=== PATIENT | male | born 1990 | race Caucasian/White ===

== ENCOUNTER 2018-10-30 19:03 | Inpatient (IN) | payer MEDICAID ==
[~2018-10-30] VITALS: Ht 170.2 cm; Wt 122.5 kg
[2018-10-30] MEDS ORDERED: QUET300T5 PO (19:39)
[2018-10-30] MEDS ORDERED: ARIP300S IM (19:39)
[2018-10-30 20:17] LABS: BASOPHILS % (AUTO) 0.6 % (0.0-2.0); EOSINOPHILS % (AUTO) 0.8 % (1.0-6.0); HEMATOCRIT 40.5 % (41-53); HEMOGLOBIN 13.2 g/dL (13.5-17.5); LYMPHOCYTES # (AUTO) 3.1 K/uL (1.0-4.8); LYMPHOCYTES % (AUTO) 25.7 % (22.0-44.0); MEAN CORPUSCULAR HEMOGLOBIN 28.6 pg (26.0-34.0); MEAN CORPUSCULAR HGB CONC 32.5 G/dL (31.0-37.0); MEAN CORPUSCULAR VOLUME 88 fL (80-100); MONOCYTES # (AUTO) 0.9 K/uL (0.1-1.0); MONOCYTES % (AUTO) 7.8 % (2.0-9.0); NEUTROPHILS # (AUTO) 7.8 K/uL (1.8-7.7); NEUTROPHILS % (AUTO) 65.1 % (40.0-70.0); PLATELET COUNT (AUTO) 226 K/uL (150-450); RED CELL DISTRIBUTION WIDTH 15.3 % (11.5-14.5)
[2018-10-30 20:23] LABS: ANION GAP 8 mmol/L (8-16); CALCIUM, TOTAL 8.7 mg/dL (8.8-10.5); CARBON DIOXIDE 28 mmol/L (22-29); CHLORIDE 105 mmol/L (98-107); CREATININE 0.93 mg/dL (0.60-1.30); GLOMERULAR FILTR. RATE CALC > 60 mL/min (>60); GLUCOSE,RANDOM 117 mg/dL (70-110); POTASSIUM 3.6 mmol/L (3.5-5.1); SODIUM SERUM 141 mmol/L (136-145); UREA NITROGEN, BLOOD 13 mg/dL (7-18)
[2018-10-30 20:30] LABS: ALANINE AMINOTRANSFERASE 24 U/L (12-78); ALBUMIN 2.9 g/dL (3.4-5.0); ALKALINE PHOSPHATASE 73 U/L (46-116); ASPARTATE AMINOTRANSFERASE 14 U/L (15-37); BILIRUBIN,TOTAL 0.1 mg/dL (0.1-1.0); TOTAL PROTEIN, SERUM 6.7 g/dL (6.4-8.2)
[2018-10-30] MEDS ORDERED: ZOLPIDEM TARTRATE 10 MG TABLET PO PRN (20:45)
[2018-10-30 21:40] VITALS: BP 129/60
[2018-10-30] MEDS ORDERED: IBUPROFEN 400 MG TABLET PO PRN (22:00)
[2018-10-30] MEDS ORDERED: PETROLATUM,WHITE 28 GM JELLY TP PRN (22:00)
[2018-10-30] MEDS ORDERED: MAG HYDROX/AL HYDROX/SIMETH ES 30 ML SUSPENSION UDCUP PO PRN (22:00)
[2018-10-30] MEDS ORDERED: CloNIDine HCL 0.1 MG TABLET PO PRN (22:00)
[2018-10-30] MEDS ORDERED: MAGNESIUM HYDROXIDE SUSPENSION 30 ML UDCUP PO PRN (22:00)
[2018-10-30] MEDS ORDERED: DOCUSATE SODIUM 100 MG CAPSULE PO PRN (22:00)
[2018-10-30] MEDS ORDERED: GuaiFENesin/D-METHORPHAN [SUGAR-FREE] 200-20MG/10 ML SYRUP UDCUP PO PRN (22:00)
[2018-10-30] MEDS ORDERED: LOPERAMIDE HCL 2 MG CAPSULE PO PRN (22:00)
[2018-10-30] MEDS ORDERED: ACETAMINOPHEN 325 MG TABLET PO PRN (22:00)
[2018-10-30] MEDS ORDERED: NICOTINE 14 MG/24 HOUR PATCH TD PRN (22:00)
[2018-10-30] MEDS ORDERED: ALBUTEROL SULFATE HFA 90 MCG/PUFF 8 GM INHALER IH PRN (22:00)
[2018-10-30] MEDS ORDERED: ONDANSETRON HCL 4 MG TABLET PO PRN (22:00)
[2018-10-31 06:24] VITALS: BP 116/72
[2018-10-31 08:31] VITALS: BP 140/79
[2018-10-31] MEDS: ARIPiprazole 15 MG TABLET PO SCH (11:59)
[2018-10-31 16:38] VITALS: BP 139/75
[2018-10-31] MEDS: HALOPERIDOL 5 MG TABLET PO PRN (17:06)
[2018-10-31] MEDS: LORazepam 2 MG TABLET PO PRN (17:06)
[2018-11-01 06:13] VITALS: BP 117/67
[2018-11-01 08:14] VITALS: BP 120/79
[2018-11-01] MEDS: ARIPiprazole 15 MG TABLET PO SCH (08:27)
[2018-11-01] MEDS ORDERED: ARIPiprazole 15 MG TABLET PO SCH (09:00)
[2018-11-01 16:00] VITALS: BP 139/81
[2018-11-01] MEDS: LORazepam 2 MG TABLET PO PRN (16:39)
[2018-11-01] MEDS: HALOPERIDOL 5 MG TABLET PO PRN (16:39)
[2018-11-02 06:01] VITALS: BP 116/75
[2018-11-02 08:19] VITALS: BP 154/76
[2018-11-02] MEDS: ARIPiprazole 10 MG TABLET PO SCH (08:24)
[2018-11-02] MEDS ORDERED: ARIPiprazole 15 MG TABLET PO SCH (09:00)
[2018-11-02] MEDS: HALOPERIDOL 5 MG TABLET PO PRN ×2 (12:39→19:59)
[2018-11-02] MEDS: LORazepam 2 MG TABLET PO PRN ×2 (12:39→19:59)
[2018-11-02 16:05] VITALS: BP 120/74
[2018-11-02] MEDS ORDERED: DiphenhydrAMINE HCL 50 MG/ML VIAL ONE (21:04)
[2018-11-02] MEDS ORDERED: HALOPERIDOL LACTATE 5 MG/ML VIAL ONE (21:04)
[2018-11-03 08:24] VITALS: BP 144/180
[2018-11-03] MEDS: LORazepam 2 MG TABLET PO PRN ×2 (08:39→18:06)
[2018-11-03] MEDS: HALOPERIDOL 5 MG TABLET PO PRN (08:39)
[2018-11-03] MEDS: ARIPiprazole 10 MG TABLET PO SCH (08:39)
[2018-11-03] MEDS ORDERED: ARIPiprazole ER SUSPENSION 400 MG PRE-FILLED DUAL CHAMBER SYRINGE IM ONE (13:45)
[2018-11-03 16:05] VITALS: BP 134/77
[2018-11-04] MEDS: LORazepam 2 MG TABLET PO PRN ×2 (02:38→09:23)
[2018-11-04 02:39] VITALS: BP 130/78
[2018-11-04 07:22] LABS: BASOPHILS % (AUTO) 0.3 % (0.0-2.0); EOSINOPHILS % (AUTO) 0.7 % (1.0-6.0); HEMATOCRIT 44.4 % (41-53); HEMOGLOBIN 14.3 g/dL (13.5-17.5); LYMPHOCYTES # (AUTO) 2.9 K/uL (1.0-4.8); LYMPHOCYTES % (AUTO) 25.3 % (22.0-44.0); MEAN CORPUSCULAR HEMOGLOBIN 28.3 pg (26.0-34.0); MEAN CORPUSCULAR HGB CONC 32.3 G/dL (31.0-37.0); MEAN CORPUSCULAR VOLUME 88 fL (80-100); MONOCYTES # (AUTO) 0.9 K/uL (0.1-1.0); MONOCYTES % (AUTO) 7.8 % (2.0-9.0); NEUTROPHILS # (AUTO) 7.6 K/uL (1.8-7.7); NEUTROPHILS % (AUTO) 65.9 % (40.0-70.0); PLATELET COUNT (AUTO) 267 K/uL (150-450); RED BLOOD CELL COUNT(AUTO) 5.06 MIL/uL (4.50-5.90); RED CELL DISTRIBUTION WIDTH 15.1 % (11.5-14.5)
[2018-11-04 08:00] VITALS: BP 106/56
[2018-11-04] MEDS ORDERED: ARIPiprazole 15 MG TABLET PO SCH (09:00)
[2018-11-04] MEDS ORDERED: DIVALPROEX SODIUM 500 MG ER TABLET PO SCH (11:00)
[2018-11-04] MEDS ORDERED: DIVA500T52 PO (11:16)
[2018-11-04] MEDS ORDERED: ARIP15TA2 PO (11:16)
== END 2018-11-04 13:10 | disposition home or self-care (01) | DRG 753 ==
LOC: EMS 19:05 → B3A 20:41 → B2S 11-02 12:50 → B3A 11-02 21:05
PROVIDERS: ADMIT Psychiatry & Neurology Psychiatry; ATTEND Psychiatry & Neurology Psychiatry
DX: F31.2 Bipolar disorder, current episode manic severe with psychotic features (principal); E83.51 Hypocalcemia; D64.9 Anemia, unspecified; D72.829 Elevated white blood cell count, unspecified; F10.10 Alcohol abuse, uncomplicated; Z71.41 Alcohol abuse counseling and surveillance of alcoholic; F12.90 Cannabis use, unspecified, uncomplicated; Z71.51 Drug abuse counseling and surveillance of drug abuser; F41.9 Anxiety disorder, unspecified; R45.850 Homicidal ideations; Z87.891 Personal history of nicotine dependence; Z91.19 Patient's noncompliance with other medical treatment and regimen; Z79.899 Other long term (current) drug therapy
CPT/HCPCS: 87081; G0480; J0401; J1200; J1630

== ENCOUNTER 2022-04-25 04:13 | Emergency (ER) | payer MEDICAID, OTHER ==
[~2022-04-25] VITALS: Ht 170.2 cm; Wt 100.0 kg
[~2022-04-25 04:13] MED LIST: ARIP15TA27 PO; DIVA-80 PO
[2022-04-25] MEDS: IBUPROFEN 600 MG TABLET PO ONE (06:35)
[2022-04-25] MEDS ORDERED: ACET-66 PO (08:37)
[2022-04-25] MEDS ORDERED: IBUP-1554 PO (08:37)
[2022-04-25 08:57] VITALS: BP 121/76
== END 2022-04-25 09:30 | disposition home or self-care (01) ==
LOC: EMS 04:16
DX: S70.12XA Contusion of left thigh, initial encounter (principal); M54.50 Low back pain, unspecified; M25.552 Pain in left hip; F31.9 Bipolar disorder, unspecified; F20.9 Schizophrenia, unspecified; F17.210 Nicotine dependence, cigarettes, uncomplicated; F12.90 Cannabis use, unspecified, uncomplicated; F15.90 Other stimulant use, unspecified, uncomplicated; F10.90 Alcohol use, unspecified, uncomplicated; Z98.890 Other specified postprocedural states; V03.90XA Pedestrian on foot injured in collision with car, pick-up truck or van, unspecified whether traffic or nontraffic accident, initial encounter; Y93.01 Activity, walking, marching and hiking; Y92.89 Other specified places as the place of occurrence of the external cause; Y99.8 Other external cause status
CPT/HCPCS: 72100; 73503; 99284

== ENCOUNTER 2023-02-23 23:30 | Inpatient (IN) | payer OTHER ==
[~2023-02-23] VITALS: Ht 172.7 cm; Wt 149.3 kg
[~2023-02-23 23:30] MED LIST changes: +ACET-66 PO; -DIVA-80 PO; +DIVA500T53 PO; +IBUP-1554 PO
[2023-02-24 00:10] LABS: BASOPHILS % (AUTO) 0.3 % (0.0-2.0); EOSINOPHILS % (AUTO) 0.1 % (1.0-6.0); HEMATOCRIT 43.3 % (41-53); HEMOGLOBIN 13.9 g/dL (13.5-17.5); LYMPHOCYTES # (AUTO) 2.1 K/uL (1.0-4.8); LYMPHOCYTES % (AUTO) 13.9 % (22.0-44.0); MEAN CORPUSCULAR HEMOGLOBIN 27.9 pg (26.0-34.0); MEAN CORPUSCULAR HGB CONC 32.2 G/dL (31.0-37.0); MEAN CORPUSCULAR VOLUME 87 fL (80-100); MONOCYTES # (AUTO) 0.8 K/uL (0.1-1.0); MONOCYTES % (AUTO) 5.4 % (2.0-9.0); NEUTROPHILS # (AUTO) 12.2 K/uL (1.8-7.7); NEUTROPHILS % (AUTO) 80.3 % (40.0-70.0); PLATELET COUNT (AUTO) 278 K/uL (150-450); RED BLOOD CELL COUNT(AUTO) 4.99 MIL/uL (4.50-5.90); RED CELL DISTRIBUTION WIDTH 15.7 % (11.5-14.5)
[2023-02-24 00:25] LABS: ANION GAP 7 mmol/L (8-16); CARBON DIOXIDE 33 mmol/L (22-29); CHLORIDE 104 mmol/L (98-107); CREATININE 0.98 mg/dL (0.60-1.30); GLOMERULAR FILTR. RATE CALC > 60 mL/min (>60); GLUCOSE,RANDOM 173 mg/dL (70-110); POTASSIUM 4.5 mmol/L (3.5-5.1); SODIUM SERUM 143 mmol/L (136-145)
[2023-02-24 00:28] LABS: ALANINE AMINOTRANSFERASE 22 U/L (12-78); ALBUMIN 3.2 g/dL (3.4-5.0); ALKALINE PHOSPHATASE 78 U/L (46-116); ASPARTATE AMINOTRANSFERASE 20 U/L (15-37); BILIRUBIN,TOTAL 0.2 mg/dL (0.1-1.0); CREATINE KINASE, TOTAL ONLY 72 U/L (39-308); TOTAL PROTEIN, SERUM 7.7 g/dL (6.4-8.2)
[2023-02-24 00:32] LABS: B-TYPE NATRIURETIC PEPTIDE 12 pg/mL (0-100)
[2023-02-24] MEDS ORDERED: SODIUM CHLORIDE 0.9% 1,000 ML IV ONE (02:15)
[2023-02-24] MEDS ORDERED: ACETAMINOPHEN 325 MG TABLET PO PRN (02:30)
[2023-02-24] MEDS ORDERED: 0.9% SODIUM CHLORIDE 10 ML SYRINGE IVP PRN (02:30)
[2023-02-24] MEDS ORDERED: ONDANSETRON HCL 4 MG/2 ML VIAL IVP PRN (02:30)
[2023-02-24 03:22] LABS: AMPHET/METH SCREEN,URINE POSITIVE (NEGATIVE); BARBITURATE SCREEN, URINE NEGATIVE (NEGATIVE); BENZODIAZEPINES SCREEN,URINE NEGATIVE (NEGATIVE); CANNABINOID SCREEN,URINE POSITIVE (NEGATIVE); COCAINE SCREEN,URINE NEGATIVE (NEGATIVE); METHADONE SCREEN, URINE NEGATIVE (NEGATIVE); OPIATE SCREEN,URINE NEGATIVE (NEGATIVE); PHENCYCLIDINE SCREEN,URINE NEGATIVE (NEGATIVE)
[2023-02-24 05:20] VITALS: BP 152/118; PULSE 97; RESP 20; TEMP 97.8
[2023-02-24 08:31] VITALS: BP 111/70; PULSE 94; RESP 19; TEMP 97.8
[2023-02-24 11:31] VITALS: BP 115/61; PULSE 97; RESP 20; TEMP 97.6
[2023-02-24 15:46] VITALS: BP 120/65; PULSE 95; RESP 20; TEMP 98
[2023-02-24 15:47] LABS: BASOPHILS % (AUTO) 0.8 % (0.0-2.0); EOSINOPHILS % (AUTO) 1.1 % (1.0-6.0); HEMATOCRIT 41.2 % (41-53); HEMOGLOBIN 13.1 g/dL (13.5-17.5); LYMPHOCYTES # (AUTO) 3.4 K/uL (1.0-4.8); LYMPHOCYTES % (AUTO) 25.3 % (22.0-44.0); MEAN CORPUSCULAR HEMOGLOBIN 27.6 pg (26.0-34.0); MEAN CORPUSCULAR HGB CONC 31.9 G/dL (31.0-37.0); MEAN CORPUSCULAR VOLUME 87 fL (80-100); MONOCYTES # (AUTO) 1.4 K/uL (0.1-1.0); MONOCYTES % (AUTO) 10.7 % (2.0-9.0); NEUTROPHILS # (AUTO) 8.4 K/uL (1.8-7.7); NEUTROPHILS % (AUTO) 62.1 % (40.0-70.0); PLATELET COUNT (AUTO) 271 K/uL (150-450); RED BLOOD CELL COUNT(AUTO) 4.75 MIL/uL (4.50-5.90); RED CELL DISTRIBUTION WIDTH 15.9 % (11.5-14.5)
[2023-02-24 16:04] LABS: ANION GAP 6 mmol/L (8-16); CALCIUM, TOTAL 8.8 mg/dL (8.8-10.5); CARBON DIOXIDE 30 mmol/L (22-29); CHLORIDE 101 mmol/L (98-107); CREATININE 0.76 mg/dL (0.60-1.30); GLOMERULAR FILTR. RATE CALC > 60 mL/min (>60); GLUCOSE,RANDOM 90 mg/dL (70-110); POTASSIUM 3.7 mmol/L (3.5-5.1); SODIUM SERUM 137 mmol/L (136-145)
[2023-02-24 16:09] LABS: ALANINE AMINOTRANSFERASE 32 U/L (12-78); ALBUMIN 2.8 g/dL (3.4-5.0); ALKALINE PHOSPHATASE 73 U/L (46-116); ASPARTATE AMINOTRANSFERASE 18 U/L (15-37); BILIRUBIN,TOTAL 0.2 mg/dL (0.1-1.0); TOTAL PROTEIN, SERUM 6.8 g/dL (6.4-8.2)
[2023-02-25 12:06] LABS: HEPATITIS C AB (EIA) Non Reactive (Non Reactive)
== END 2023-02-24 18:50 | disposition home or self-care (01) | DRG 812 ==
LOC: EMS 23:31 → 5S 02-24 03:00
PROVIDERS: ADMIT Hospitalist; ATTEND Hospitalist
DX: T40.411A Poisoning by fentanyl or fentanyl analogs, accidental (unintentional), initial encounter (principal); F31.9 Bipolar disorder, unspecified; F15.10 Other stimulant abuse, uncomplicated; F20.9 Schizophrenia, unspecified; R09.02 Hypoxemia; Z87.891 Personal history of nicotine dependence; Y92.89 Other specified places as the place of occurrence of the external cause; Z79.899 Other long term (current) drug therapy
CPT/HCPCS: 71045; 80053; 80307; 82550; 83880; 84484; 85025; 86803; 87340; 93005; 99285; G0378; G0480; 36415-L1; 36415-TC